=== PATIENT | male | born 1930 | race Caucasian/White ===

== ENCOUNTER 2016-12-15 10:34 | Inpatient (IN) | payer MEDICARE ==
[2016-12-15] MEDS ORDERED: Eucerin (Mineral Oil/Petrolatum,White) 30 gm Jar TOP PRN (13:11)
[2016-12-15] MEDS ORDERED: Acetaminophen 650 MG Suppository PR PRN (13:11)
[2016-12-15] MEDS ORDERED: Ondansetron HCl/PF 4 MG/2 ML Vial IVP PRN (13:11)
[2016-12-15] MEDS ORDERED: Artificial Tear Sol 15 ML BOT EA EYE PRN (13:11)
[2016-12-15] MEDS ORDERED: HumaLOG 300 UNITS/3 ML VIAL SC PRN ×2 (13:11)
[2016-12-15] MEDS ORDERED: Bisacodyl 10 MG SUPP PR PRN (13:11)
[2016-12-15] MEDS ORDERED: Chloraseptic Spray 180 ml Bottle PO PRN (13:11)
[2016-12-15] MEDS ORDERED: Dextrose 5% in Water 1,000 ML IV PRN (13:11)
[2016-12-15] MEDS ORDERED: Labetalol HCl 100 MG/20 ML VIAL SLOW IVP PRN (13:11)
[2016-12-15] MEDS ORDERED: Sodium Chloride 0.65% Nasal 44 ML BOT EA NARE PRN (13:11)
[2016-12-15] MEDS ORDERED: Dextrose 50% Abboject 50 ML SYRINGE SLOW IVP PRN (13:11)
[2016-12-15] MEDS ORDERED: Dicyclomine HCl 20 mg/2 ml Ampule IM PRN (13:14)
[2016-12-15 13:45] VITALS: BMI 21.9
[2016-12-15] MEDS: Morphine Sulfate 2 MG/ML SYRINGE SLOW IVP PRN ×3 (13:52→21:11)
[2016-12-15] MEDS: Dextrose 5 % And 0.9 % NaCl 1,000 ML IV SCH ×2 (13:56→23:34)
--- NOTE | 2016-12-15 13:59 | HP ---
PRIMARY CARE PHYSICIAN: Dr. Ruben Badillo. REASON FOR ADMISSION: Transfer from [facility] for small-bowel obstruction. HISTORY OF PRESENT ILLNESS: An 86-year-old male who has previous multiple surgeries done in his life. He reports that he required midline incision in his abdomen for renal cell carcinoma. Subsequently, he required another surgery for small-bowel obstruction and required a colon resection, and after that surgery, patient's surgical site was infected and required a prolonged wound VAC therapy, and since then, he has incisional hernia. He had bowel obstruction in the past. Patient was fine up until last night. All of suddenly, during the middle of night, he was having acute severe crampy abdominal pain, which was about 10/10 in intensity. There was no specific aggravating or relieving factor. The patient had bowel movement around 4:30 this morning, which was scant amount. He had a very good bowel movement yesterday. Patient was reporting me that he was constipated yesterday, but he was feeling better after a bowel movement yesterday. Patient waited at home to feel better by itself, but even after a bowel movement , his pain was getting worse, he was feeling abdominal distention, and he was feeling nausea. He also vomited one time containing liquid without any blood. Even after vomiting, he was not feeling much better and that is why he decided to go to emergency room locally around 5:00 a.m. The patient was diagnosed with a small-bowel obstruction. Patient had NG tube and a low-intermittent suction was started, and subsequently, he was transferred to our hospital for further treatment. From emergency room, Dr. Childs was notified and he recommended to admit under Medicine Service. At this point, patient is mainly irritated with his NG tube. He still has abdominal pain, but less in intensity. He denies any fever or chills. He denies any urinary tract infection symptoms. He denies any melena or hematochezia. Emergency room treatment at [facility], the patient was given Zofran 4 mg, morphine 4 mg, IV fluid, and subsequently, morphine and Zofran dose was repeated. PAST MEDICAL HISTORY: History of renal cell carcinoma, required a nephrectomy; history of small-bowel obstruction, required surgery and colectomy; history of benign enlargement of prostate; incisional hernia; diabetes, type 2; dyslipidemia. PAST SURGICAL HISTORY: Right kidney removal due to cancer and colon resection after small-bowel obstruction. PAST PSYCHIATRIC HISTORY: Reviewed and negative. SOCIAL HISTORY: Patient is . He is pretty much active. He lives with his in the [facility]. He drinks 1 beer daily. He denies any smoking. He denies any other illicit drug abuse. FAMILY HISTORY: No strong family history of premature coronary artery disease, stroke, or cancer. ALLERGIES: ASPIRIN AND PROMETHAZINE. CURRENT HOME MEDICATIONS: Lisinopril 20 mg p.o. daily, metformin 500 mg twice daily, metoprolol tartrate 25 mg p.o. daily, omeprazole 40 mg p.o. daily, triamterene/hydrochlorothiazide 37.5/25 one tablet p.o. daily, balsalazide 750 mg p.o. b.i.d., dicyclomine 20 mg 3 times daily, Lipitor 40 mg p.o. at bedtime. REVIEW OF SYSTEMS: The following complete review of systems was negative, unless otherwise mentioned in the HPI or below: CONSTITUTIONAL: Weight loss or gain, ability to conduct usual activities. SKIN: Rash, itching. EYES: Double vision, pain. ENT/MOUTH: Nose bleeding, neck stiffness, pain, tenderness. CARDIOVASCULAR: Palpitations, dyspnea on exertion, orthopnea. RESPIRATORY: Shortness of breath, wheezing, cough, hemoptysis, fever or night sweats. GASTROINTESTINAL: Poor appetite, abdominal pain, heartburn, nausea, vomiting, constipation, or diarrhea. GENITOURINARY: Urgency, frequency, dysuria, nocturia. MUSCULOSKELETAL: Pain, swelling. NEUROLOGIC/PSYCHIATRIC: Anxiety, depression. ALLERGY/IMMUNOLOGIC: Skin rash, bleeding tendency. Please see my HPI for pertinent positives and negatives. All other review of systems reviewed and negative except as mentioned in the HPI. PHYSICAL EXAMINATION: VITAL SIGNS: Currently, blood pressure 115/76, pulse 69, respiratory rate 19, temperature 97.5, saturation 96% on room air, weight 61.6 kilograms. GENERAL: Patient is currently alert, awake, in no obvious acute distress. HEENT: Head: Normocephalic and atraumatic. Eyes: Pupils round and reactive to light. Extraocular muscle intact. ENT: NG tube in place with low- intermittent suction. Oropharynx within normal limits. Moist mucous membranes. No oral lesions. No pharyngeal erythema, no exudate. NECK: Supple. Range of motion is normal. No meningeal signs of irritation. LUNGS: Clear to auscultation without any rhonchi or rales. CARDIAC: S1, S2 regular without any murmur. ABDOMEN: Patient does have a midline old surgical scar with a large ventral defect with incisional hernia. Abdomen appears slightly distended. Bowel sound unable to elicit at this point. No peritoneal signs, no guarding, no rigidity, no rebound. BACK: Examination unremarkable, no CVA tenderness. EXTREMITIES: Upper extremities, passive movement of all joints are normal. Lower extremities, no edema, good peripheral pulsation. SKIN: No skin rash. HEMATOLOGICAL SYSTEM: No lymphadenopathy. PSYCHIATRIC: Normal affect. NEUROLOGIC: Nonfocal examination. The patient moves all 4 limbs. Plantar bilateral flexor. PSYCHIATRIC: Normal affect. SIGNIFICANT LABS: campus monitor was showing normal sinus rhythm. Li catheter draining clear urine. NG tube with low-intermittent suction, draining a little amount of yellowish fluid. CT of the abdomen and pelvis based on my review, mid small-bowel obstruction, left lower lobe 2 masses present, worrisome for metastasis, small pleural nodule, right-sided nephrectomy. CBC: WBC 6.9, hemoglobin 15.3, platelet 218. BMP: Sodium 140, potassium 4.5, chloride 103, carbon dioxide 26, BUN 20, creatinine 1.26, glucose 141, calcium 9.5. LFT: AST 18, ALT 13, alkaline phosphatase 87, albumin 4.2, lipase 13. Urinalysis unremarkable. ASSESSMENT AND PLAN: 1. Acute small-bowel obstruction. This patient has various risk factors for small-bowel obstruction. He had a complicated previous surgical course in his abdomen with nephrectomy, and subsequently, patient had 1-time small-bowel obstruction, required colon resection and wound infection with incisional hernia. At this point, CT scan findings consistent with small-bowel obstruction. He already has NG tube with low-intermittent suction. We will consult General Surgery. We will keep him n.p.o. We will hydrate with IV fluid with dextrose NS at 100 mL per hour. Tomorrow morning, we will repeat x- ray abdomen and then we will decide a small bowel x-ray. Based on tomorrow's x- ray abdomen and small bowel x-ray, we will decide about starting clear liquid diet and advancing diet as tolerated. We are hoping that this problem will improve with conservative therapy. If current conservative therapy fails and if his small-bowel obstruction does not resolve, then he is very complicated patient for a surgical intervention as well. 2. Pulmonary metastasis suspected. This patient has left lower lobe lung mass , and given his previous history of renal cell carcinoma, metastasis is possible. He also has 2 pulmonary nodules. At this point, we will defer this investigation as an outpatient basis. He may need outpatient follow up with oncologist and PET scan. 3. Diabetes, type 2. This patient is taking metformin 500 mg p.o. b.i.d., which he will hold at this point. We will continue with insulin as per sliding scale protocol. We will continue to monitor his labs. 4. History of hypertension. We will use only parenteral blood pressure medication for now until the patient starts taking his p.o. intake. 5. Gastroesophageal reflux disease. We will continue with Pepcid 20 mg IV b.i.d. 6. Dyslipidemia. We will resume Lipitor therapy when the patient is able to take p.o. intake. 7. Deep venous thrombosis prophylaxis. Lovenox 30 mg subcutaneously daily. 8. Gastrointestinal prophylaxis. Pepcid 20 mg IV b.i.d. 9. Code status: The patient is FULL CODE. The patient's is surrogate decision maker. Disposition plan based on clinical course. We are expecting patient's stay in the hospital more than 2 midnights. Plan of care discussed with the patient and in detail. MTDD
--- NOTE | 2016-12-15 17:04 | CON ---
DATE OF CONSULTATION: 12/15/2016 REQUESTING PHYSICIAN: Regis Diaz M.D. HISTORY OF PRESENT ILLNESS: This is an 86-year-old man with previous multiple abdominal surgeries. The patient presented to [facility] in [place], complaining of insidious onset generalized abdo valeria pain which was crampy in nature. Pain started last night and intensified to 10/10, and as a r esult, he was taken to the emergency department by his . The patient reports some nausea with o ne bout of nonbilious emesis. Last bowel movement was yesterday. Last time he passed gas was also yesterday. The patient reports recent bouts of constipation and no alternative episodes of diarrhea . Denies any fevers or chills. Denies any hematochezia or melena. The patient denies any unexplai andreea weight loss. PAST MEDICAL HISTORY: Significant for renal cell carcinoma of which the patient is status post neph rectomy. Other pertinent past medical history includes benign prostatic hypertrophy, type 2 diabetes mellitus , hyperlipidemia, and chronic abdominal pain. PAST SURGICAL HISTORY: Significant for right radical nephrectomy, partial colon resection with anas tomosis, multiple exploratory laparotomies for small bowel obstruction. SOCIAL HISTORY: The patient is and lives at home with his . He admits to drinking one beer a day. Denies any cigarette smoking or illicit drug abuse. FAMILY HISTORY: Noncontributory for this patient's age. PREHOSPITAL MEDICATIONS: Includes Flomax 0.4 mg p.o. daily, tramadol 50 mg p.o. q.6 h. p.r.n., hydr ochlorothiazide 12.5 mg p.o. daily, hydrocodone 10 mg p.o. q.6 h. p.r.n. pain, docusate calcium 240 mg p.o. b.i.d., and sucralfate 1 gram p.o. b.i.d. ALLERGIES: ASPIRIN and PROMETHAZINE. REVIEW OF SYSTEMS: A 10 point review of system is essentially unremarkable except for as stated in past medical history and chief complaint. PHYSICAL EXAMINATION: GENERAL: This reveals an 86-year-old normally developed man who is otherwise coherent and interacti ve and appears stated age. The patient is alert and oriented x3, appears to be in no significant ac blaire distress at the time of my evaluation. VITAL SIGNS: Currently includes blood pressure 153/82, pulse 62, respirations 18, temperature 97.4 degrees Fahrenheit, and oxygen saturation 95% on room air. HEENT: Reveals normocephalic and atraumatic. He has an indwelling nasogastric tube placed in [facility] ell this morning, prior to transfer has been over 8 hours since the nasogastric tube was placed and has returned less than 200 mL of nonbilious gastric effluent. NECK: The patient has no jugular venous distention noted. CARDIOVASCULAR: Heart reveals regular rate and rhythm, no murmurs or gallops auscultated. LUNGS: Clear to auscultation bilaterally. Breathing is regular and unlabored. ABDOMEN: Soft and moderately distended. He has minimal tenderness to palpation with no gross rebou nd tenderness present. He has irregularly shaped incisional abdominal scar consistent with previous histories of multiple abdominal operations last of which was complicated by wound infection which w as allowed to heal by secondary intention. Liver and spleen are nonpalpable below costal margins. Bowel sounds in all four quadrants appear normoactive. EXTREMITIES: There is 2+ radial and pedal pulses bilaterally. No ankle edema is present. NEUROLOGIC: Reveals no focal deficits present. PERTINENT LABORATORY FINDINGS: From [place] includes a CBC with 6900 white blood cells, hemoglobin 15.3, hematocrit is 45.8, and platelet count 218,000. Metabolic profile: Sodium 140, potassium 4. 5, chloride is 103, bicarbonate 26, BUN 20, creatinine is 1.26, glucose 141. Total bilirubin 0.6, AST and ALT normal at 18 and 13 respectively. Alkaline phosphatase is also normal at 87. Serum lip ase normal at 13 units per liter. Urinalysis obtained was essentially unremarkable. I personally r eviewed the CT scan of the abdomen and pelvis which is pertinent for 2 abnormal soft tissue pulmonar y densities in the left lower lobe. Also noted are multiple distended loops of small bowel with no clear transition zone. The contrast appears to extend into the colon. There is actually gas in the rectum. IMPRESSION: 1. Acute abdominal pain, likely secondary to partial small bowel obstruction versus gastroenteritis . 2. Abnormal long densities likely secondary to metastatic renal cell carcinoma. RECOMMENDATIONS: 1. Conservative management. There is no acute surgical indication for this patient at this time. 2. The nasogastric tube will be discontinued and the patient will be started on clear liquid diet. I will continue serial physical examination and make further recommendations as necessary. 3. At the discretion of the primary service and the patient. The lung abnormal densities may recei ve further workup to exclude metastatic disease. Thank you again Dr. Diaz for allowing me the opportunity to participate in the care of this patie nt whose course I will follow along with you and make further recommendations as necessary.
[2016-12-15] MEDS: Famotidine/PF 20 mg/2ml Vial SLOW IVP SCH (20:29)
[2016-12-15] MEDS ORDERED: FLU VACC TS2017-18 (>65YR) 0.5 ML SYRINGE IM ONE (21:00)
[2016-12-16] MEDS: Morphine Sulfate 2 MG/ML SYRINGE SLOW IVP PRN (01:47)
[2016-12-16 05:07] LABS: #Lymphocytes 0.8 thou/uL (1.20-3.40); #Monocytes 0.6 thou/uL (0.11-0.59); #Neutrophils 2.9 thou/uL (1.40-6.50); %Basophils 0.1 % (0.0-1.0); %Eosinophils 1.1 % (0.0-10.0); %Lymphocytes 17.7 % (21.0-51.0); %Monocytes 13.8 % (0.0-10.0); Mean Platelet Volume 7.3 fL (7.4-10.4); Red Blood Cell (RBC) Count 4.44 mill/uL (4.70-6.10); White Blood Cell (WBC) Count 4.2 thou/uL (4.8-10.8)
[2016-12-16 05:32] LABS: ALT (SGPT) 8 U/L (8-55); AST (SGOT) 17 U/L (5-34); Alkaline Phosphatase 74 U/L (40-150); Anion Gap 10 mmol/L (10-20); BUN (Urea Nitrogen) 16 mg/dL (8.4-25.7); Bilirubin, Total 0.7 mg/dL (0.2-1.2); Calc. Creatinine Clearance 45 mL/min (70-130); Calcium 8.3 mg/dL (7.8-10.44); Carbon Dioxide 21 mmol/L (23-31); Chloride 108 mmol/L (98-107); Estimated GFR-MDRD 68; Globulin 2.8 g/dL (2.4-3.5)
[2016-12-16] MEDS ORDERED: HYDROcodone/Acetaminophen 5/325 mg Tablet PO PRN (07:33)
[2016-12-16] MEDS ORDERED: traMADol HCl 50 MG TAB PO PRN (07:33)
[2016-12-16] MEDS: Enoxaparin Sodium 30 MG/0.3 ML SYRINGE SC SCH (08:23)
[2016-12-16] MEDS: Famotidine/PF 20 mg/2ml Vial SLOW IVP SCH ×2 (08:24→20:30)
[2016-12-16] MEDS: Tamsulosin HCl 0.4 MG CAP PO SCH (08:24)
[2016-12-16] MEDS: Sucralfate 1 GM TAB PO SCH ×2 (08:24→20:30)
[2016-12-16] MEDS: Polyethylene Glycol 3350 17 GM Packet PO SCH (08:24)
[2016-12-16] MEDS: Hydrochlorothiazide 25 MG TAB PO SCH (08:25)
[2016-12-16] MEDS: Dextrose 5 % And 0.9 % NaCl 1,000 ML IV SCH (08:35)
[2016-12-16] MEDS ORDERED: Non-Formulary Item 1 EACH (Hydrochlorothiazide [Hydrochlorothiazide] 12.5 MG) PO SCH (09:00)
--- NOTE | 2016-12-16 09:43 | RAD ---
AP ABDOMINAL RADIOGRAPH: DATE: 12/16/16. HISTORY: Small bowel obstruction. COMPARISON: CT abdomen on 12/15/16. FINDINGS: There are dilated loops of small bowel seen within the abdomen which were also seen on recent CT sca n examination. There does appear to be contrast within the colon on this examination. Findings may be related to a partial small bowel obstruction. Phleboliths overlie the pelvis. Mild degenerativ e changes are seen in the spine. IMPRESSION: Dilated loops of small bowel, and contrast does appear to be within the colon on the current study. Findings may be related to partial small bowel obstruction. POS: [facility]
--- NOTE | 2016-12-16 10:27 | PDOC.PN ---
- Subjective Encounter Start Date: 12/16/16 Encounter Start Time: 08:40 -: old records requested/rev pt had small BM today, no vomiting, Patient seen and examined. No new complaints. No overnight events - Objective Resuscitation Status: Resuscitation Status FULL:Full Resuscitation MAR Reviewed: Yes Vital Signs & Weight: Vital Signs (12 hours) Temp Pulse Resp BP BP Pulse Ox 12/16/16 08:00 97.6 F 68 16 12/16/16 07:25 97.6 F 68 16 132/75 95 12/16/16 04:00 98.6 F 69 20 120/67 96 12/16/16 00:00 98.4 F 64 18 149/76 H 95 Weight Weight 136 lb I&O: 12/15/16 12/16/16 12/17/16 06:59 06:59 06:59 Intake Total 1840 Output Total 200 Balance 1640 Result Diagrams: 12/16/16 04:28 12/16/16 04:28 Additional Labs: Accuchecks 12/16/16 05:30 POC Glucose 137 H Radiology Reviewed by me: Yes (xray abdomen) Phys Exam - Physical Examination Constitutional: NAD HEENT: PERRLA, moist MMs, sclera anicteric Neck: no JVD, supple Respiratory: no wheezing, no rales, no rhonchi Cardiovascular: RRR, no significant murmur, no rub Gastrointestinal: soft, non-tender, no distention, positive bowel sounds Musculoskeletal: no edema, pulses present Neurological: non-focal, normal sensation, moves all 4 limbs Psychiatric: normal affect, A&O x 3 Skin: no rash, normal turgor Dx/Plan (1) Partial small bowel obstruction Status: Resolved (2) Pulmonary mass Code(s): R91.8 - OTHER NONSPECIFIC ABNORMAL FINDING OF LUNG FIELD Status: Acute (3) BPH (benign prostatic hyperplasia) Code(s): N40.0 - BENIGN PROSTATIC HYPERPLASIA WITHOUT LOWER URINRY TRACT SYMP Status: Chronic (4) Dyslipidemia Code(s): E78.5 - HYPERLIPIDEMIA, UNSPECIFIED Status: Chronic (5) H/O renal cell carcinoma Code(s): Z85.528 - PERSONAL HISTORY OF OTHER MALIGNANT NEOPLASM OF KIDNEY Status: Chronic (6) Hypertension Code(s): I10 - ESSENTIAL (PRIMARY) HYPERTENSION Status: Chronic (7) Macrocytosis without anemia Code(s): D75.89 - OTHER SPECIFIED DISEASES OF BLOOD AND BLOOD-FORMING ORGANS Status: Chronic - Plan cont current plan of care, plan discussed w/ family * DC hyperglycemia order as pt denies diabetes history * advance to regular diet * will monitor today for his food tolerance * pt wants to follow up with oncology for his lung lesion for outpt work up * consult dietary for diet education * medication reviewed as below * symptomatic treatment * discussed with . Review of Systems - Review of Systems ENT: negative: Ear Pain, Ear Discharge, Nose Pain, Nose Discharge, Nose Congestion, Mouth Pain, Mouth Swelling, Throat Pain, Throat Swelling, Other Respiratory: negative: Cough, Dry, Shortness of Breath, Hemoptysis, SOB with Excertion, Pleuritic Pain, Sputum, Wheezing Cardiovascular: negative: Chest Pain, Palpitations, Orthopnea, Paroxysmal Noc. Dyspnea, Edema, Light Headedness, Other Gastrointestinal: negative: Nausea, Vomiting, Abdominal Pain, Diarrhea, Constipation, Melena, Hematochezia, Other Genitourinary: negative: Dysuria, Frequency, Incontinence, Hematuria, Retention , Other Musculoskeletal: negative: Neck Pain, Shoulder Pain, Arm Pain, Back Pain, Hand Pain, Leg Pain, Foot Pain, Other - Medications/Allergies Allergies/Adverse Reactions: Allergies Allergy/AdvReac Type Severity Reaction Status Date / Time aspirin Allergy Verified 03/03/14 12:19 promethazine HCl Allergy Verified 03/03/14 12:19 [From Phenergan] Medications: Current Medications Acetaminophen (Tylenol) 650 mg DE Q4H PRN PRN Reason: Headache/Fever or Mild Pain Hydrocodone Bitart/Acetaminophen ([place]unter 5/325) 2 tab PO Q6H PRN PRN Reason: Pain Albuterol/Ipratropium (Duoneb) 3 ml NEB [id number] PRN PRN Reason: SOB &/or Wheezing Artificial Tears (Tears Renewed 15ml Bottle) 0 drop EA EYE PRN PRN PRN Reason: Dry Eyes Bisacodyl (Dulcolax) 10 mg DE Q24H PRN PRN Reason: Constipation Dicyclomine HCl (Bentyl) 20 mg IM QID PRN PRN Reason: GI Cramping Last Admin: 12/15/16 23:50 Dose: 20 mg Enoxaparin Sodium (Lovenox) 30 mg SC 0900 LEONARD Last Admin: 12/16/16 08:23 Dose: Not Given Famotidine (Pepcid) 20 mg SLOW IVP Q12HR [facility] Last Admin: 12/16/16 08:24 Dose: 20 mg Hydralazine HCl (Apresoline) 10 mg SLOW IVP Q4H PRN PRN Reason: Systolic BP > 180 Hydrochlorothiazide (Hydrochlorothiazide) 12.5 mg PO DAILY [facility] Last Admin: 12/16/16 08:25 Dose: 12.5 mg Labetalol HCl (Normodyne) 20 mg SLOW IVP Q4H PRN PRN Reason: Systolic BP > 180 Mineral Oil/White Petrolatum (Eucerin Cream) 0 gm TOP BIDPRN PRN PRN Reason: Dry Skin Morphine Sulfate (Morphine Sulfate) 2 mg SLOW IVP Q4H PRN PRN Reason: Pain Last Admin: 12/16/16 01:47 Dose: 2 mg Ondansetron HCl (Zofran) 4 mg IVP Q6H PRN PRN Reason: Nausea/Vomiting Last Admin: 12/15/16 21:09 Dose: 4 mg Phenol (Chloraseptic [place] 180 Ml Bot) 0 ml PO PRN PRN PRN Reason: Sore Throat Polyethylene Glycol (Miralax) 17 gm PO DAILY [facility] Last Admin: 12/16/16 08:24 Dose: 17 gm Sodium Chloride ([place] Nasal [place] 0.65%) 0 ml EA NARE QIDPRN PRN PRN Reason: Nasal Congestion Sodium Chloride (Flush - Normal Saline) 10 ml IVF Q12HR [facility] Last Admin: 12/16/16 08:23 Dose: Not Given Sodium Chloride (Flush - Normal Saline) 10 ml IVF PRN PRN PRN Reason: Saline Flush Sucralfate (Carafate) 1 gm PO BID [facility] Last Admin: 12/16/16 08:24 Dose: 1 gm Tamsulosin HCl (Flomax) 0.4 mg PO DAILY [facility] Last Admin: 12/16/16 08:24 Dose: 0.4 mg Tramadol HCl (Ultram) 50 mg PO Q6H PRN PRN Reason: Pain
--- NOTE | 2016-12-16 11:38 | PRG ---
DATE OF SERVICE: 12/16/2016 SUBJECTIVE: Mr. Beard is awake and alert today. He reports minimal abdominal pain. He tolerates clear liquid diet. He did report a bowel movement this morning and passing flatus. He has remained hemodynamically stable since this admission and afebrile over the last 24 hours. OBJECTIVE: VITAL SIGNS: Includes blood pressure 132/75, pulse 68, respirations 16, maximum temperature in the last 24 hours is 98.6 degrees Fahrenheit. Oxygen saturation is 95% on room air. HEENT: Reveals normocephalic and atraumatic. Pupils equal, round, reactive to light and accommodat ion. He has no jugular venous distention noted. HEART: Reveals regular rate and rhythm, no murmurs or gallops auscultated. CHEST: Lungs clear to auscultation bilaterally. Breathing is regular and unlabored. ABDOMEN: Soft, nontender and nondistended. Bowel sounds in all 4 quadrants appear normoactive. NEUROLOGIC: Reveals no focal deficits present. LABORATORY DATA: Today includes a CBC with 4200 white blood cells, hemoglobin 14.6, hematocrit is 4 5.0, platelet count is 225,000. Metabolic profile: Sodium 135, potassium is 4.4, chloride is 108, bicarbonate 21, BUN 16, creatinine is 1.03, glucose 140. Lactic acid is normal at 1.2, AST and ALT normal at 17 and 8 respectively. IMPRESSION: Resolved acute small-bowel obstruction. PLAN: Will advance diet and activity. There is no acute surgical indication for this patient at th is time.
[2016-12-17] MEDS: Polyethylene Glycol 3350 17 GM Packet PO SCH (07:12)
[2016-12-17] MEDS: Tamsulosin HCl 0.4 MG CAP PO SCH (07:13)
[2016-12-17] MEDS: Famotidine/PF 20 mg/2ml Vial SLOW IVP SCH (07:13)
[2016-12-17] MEDS: Sucralfate 1 GM TAB PO SCH (07:13)
[2016-12-17] MEDS: Hydrochlorothiazide 25 MG TAB PO SCH (07:13)
[2016-12-17] MEDS: Enoxaparin Sodium 30 MG/0.3 ML SYRINGE SC SCH (07:16)
[2016-12-17 08:05] VITALS: BP 138/69; TEMP 98.3
--- NOTE | 2016-12-17 11:04 | PDOC.PN ---
- Subjective Encounter Start Date: 12/17/16 Encounter Start Time: 06:00 Patient seen and examined. No new complaints. No overnight events - Objective Resuscitation Status: Resuscitation Status FULL:Full Resuscitation MAR Reviewed: Yes Vital Signs & Weight: Vital Signs (12 hours) Temp Pulse Resp BP Pulse Ox 12/17/16 08:04 98.3 F 69 18 138/69 95 12/17/16 08:00 98.3 F 69 18 Weight Weight 136 lb I&O: 12/16/16 12/17/16 12/18/16 06:59 06:59 06:59 Intake Total 1840 Output Total 200 100 Balance 1640 -100 Result Diagrams: 12/16/16 04:28 12/16/16 04:28 Additional Labs: Accuchecks 12/15/16 20:06 POC Glucose 135 H Phys Exam - Physical Examination Constitutional: NAD HEENT: PERRLA, moist MMs, sclera anicteric Neck: no JVD, supple Respiratory: no wheezing, no rales, no rhonchi Cardiovascular: RRR, no significant murmur, no rub Gastrointestinal: soft, non-tender, no distention, positive bowel sounds Musculoskeletal: no edema, pulses present Neurological: non-focal, normal sensation, moves all 4 limbs Psychiatric: normal affect, A&O x 3 Skin: no rash, normal turgor Dx/Plan (1) Partial small bowel obstruction Status: Resolved (2) Pulmonary mass Code(s): R91.8 - OTHER NONSPECIFIC ABNORMAL FINDING OF LUNG FIELD Status: Acute (3) BPH (benign prostatic hyperplasia) Code(s): N40.0 - BENIGN PROSTATIC HYPERPLASIA WITHOUT LOWER URINRY TRACT SYMP Status: Chronic (4) Dyslipidemia Code(s): E78.5 - HYPERLIPIDEMIA, UNSPECIFIED Status: Chronic (5) H/O renal cell carcinoma Code(s): Z85.528 - PERSONAL HISTORY OF OTHER MALIGNANT NEOPLASM OF KIDNEY Status: Chronic (6) Hypertension Code(s): I10 - ESSENTIAL (PRIMARY) HYPERTENSION Status: Chronic (7) Macrocytosis without anemia Code(s): D75.89 - OTHER SPECIFIED DISEASES OF BLOOD AND BLOOD-FORMING ORGANS Status: Chronic - Plan cont current plan of care, plan discussed w/ family * medication reviewed as below * symptomatic treatment * see discharge macie.
--- NOTE | 2016-12-17 11:20 | DIS ---
DATE OF ADMISSION: 12/15/2016 DATE OF DISCHARGE: 12/17/2016 PRIMARY CARE PHYSICIAN: Luan Badillo D.O. DISCHARGE DISPOSITION: Home. PRIMARY DISCHARGE DIAGNOSES: 1. Partial small-bowel obstruction, improved. 2. Pulmonary mass suspected for metastasis. SECONDARY DISCHARGE DIAGNOSES: Macrocytosis without anemia, alcohol abuse, hypertension, history of renal cell carcinoma, dyslipidemia, and benign enlargement of prostate. PRIMARY PROCEDURE/OPERATION: NG tube with low intermittent suction. RADIOLOGICAL INVESTIGATION: Abdomen and pelvis CT scan was done at [facility] which sh owed small-bowel obstruction and pulmonary mass. Abdomen x-ray showed nonspecific bowel gas pattern. SIGNIFICANT LABORATORY DATA: Hemoglobin 14.6, MCV 101, creatinine 1.03. Electrolytes normal. LFT normal. Lactic acid 1.2. DISCHARGE MEDICATIONS: The patient will continue all his previous medications; Colace 240 mg p.o. b .i.d., [place] 5 one 1 or 2 tablets q.6 hourly p.r.n., hydrochlorothiazide 12.5 mg p.o. daily, MiraLax 17 grams p.o. daily, Carafate 1 gram p.o. b.i.d., Flomax 0.4 mg p.o. daily, tramadol 50 mg q.6 hour ly p.r.n. CONTRAINDICATIONS: None. CODE STATUS: FULL CODE. 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 Childs, General Surgery was consulted. ALLERGIES: ASPIRIN, PROMETHAZINE. DISCHARGE PLAN: Post hospital, the patient will follow up with primary care physician. The patient is advised to follow up with Dr. Childs as instructed. Primary care physician requested to schedule outpatient Oncology followup for pulmonary mass. HOSPITAL COURSE: An 86-year-old male who initially went to [facility] where he had abd omen and pelvis CT scan that showed partial small bowel obstruction. Patient went to Emergency Room for acute onset of abdominal pain, but that pain did not improve even after vomiting and he was fee ling abdominal bloating, he was transferred to our emergency room and subsequently he was admitted t o medical floor. He was admitted under Medicine Service, we consulted General Surgery. Patient was treated conservatively with NG tube with low intermittent suction. Subsequently, NG tube was disco ntinued and patient was started on clear liquid diet and he did very well with clear liquid diet and next day we advanced his diet and he had no problems. He was having bowel movement. At this point, Podiatry consult was made and patient was given detailed education about low residue diet. The patient is given counseling to avoid alcohol abuse. Patient is also given instruction to follow up with Oncology/Pulmonary for pulmonary mass evaluation. This test result was discussed with the patient and he wanted to follow up as an outpatient basis. He may need a PET scan and subsequent bi opsy if he is interested. Overall, patient is medically stable for discharge. The patient is seen and examined at bedside tokatherine byrd. Please see my progress note from today for further details.
== END 2016-12-17 10:12 | disposition home or self-care (01) | DRG 389 ==
LOC: ERS 10:34 → T4-A 12:06
PROVIDERS: ADMIT Internal Medicine; ATTEND Internal Medicine
DX: K56.609 Unspecified intestinal obstruction, unspecified as to partial versus complete obstruction (principal); C78.02 Secondary malignant neoplasm of left lung; E11.9 Type 2 diabetes mellitus without complications; D75.89 Other specified diseases of blood and blood-forming organs; E78.5 Hyperlipidemia, unspecified; I10 Essential (primary) hypertension; K21.9 Gastro-esophageal reflux disease without esophagitis; N40.0 Benign prostatic hyperplasia without lower urinary tract symptoms; F10.10 Alcohol abuse, uncomplicated; Z90.49 Acquired absence of other specified parts of digestive tract; Z90.5 Acquired absence of kidney; Z88.8 Allergy status to other drugs, medicaments and biological substances
CPT/HCPCS: 36415; 36416; 74000; 80053; 83605; 85025; 99285; A4216; J1650; J2270; J2405; S0028

== ENCOUNTER 2019-04-08 01:48 | Inpatient (IN) | payer MEDICARE ==
[2019-04-08] MEDS ORDERED: Ondansetron PF 4 MG/2 ML Vial IVP PRN (02:37)
[2019-04-08 02:56] LABS: #Eosinphils 0.1 thou/uL (0.0-0.7); #Monocytes 0.4 thou/uL (0.11-0.59); #Neutrophils 4.2 thou/uL (1.40-6.50); %Basophils 0.8 % (0.0-1.0); %Eosinophils 1.4 % (0.0-10.0); %Monocytes 7.3 % (0.0-10.0); %Neutrophils 72.5 % (42.0-75.0); Hemoglobin 15.6 g/dL (14.0-18.0); Mean Corpuscular HGB CONC 32.2 g/dL (32.0-36.0); Mean Corpuscular Hemoglobin 29.7 pg (27.0-31.0); Mean Corpuscular Volume 92.2 fL (78.0-98.0); Mean Platelet Volume 6.3 fL (7.4-10.4); Platelet Count 289 thou/uL (130-400); RBC Distribution Width 13.2 % (11.5-14.5); Red Blood Cell (RBC) Count 5.27 mill/uL (4.70-6.10); White Blood Cell (WBC) Count 5.7 thou/uL (4.8-10.8)
--- NOTE | 2019-04-08 03:00 | PDOC.EVN ---
Event Note - Event Note Event Note: [id number] HP
[2019-04-08 03:20] LABS: Anion Gap 11 mmol/L (10-20); BUN (Urea Nitrogen) 19 mg/dL (8.4-25.7); Calc. Creatinine Clearance 0 mL/min (70-130); Calcium 8.2 mg/dL (7.8-10.44); Carbon Dioxide 24 mmol/L (23-31); Chloride 107 mmol/L (98-107); Estimated GFR-MDRD 68; Glucose 107 mg/dL (83-110); Potassium 4.8 mmol/L (3.5-5.1); Sodium 137 mmol/L (136-145)
--- NOTE | 2019-04-08 03:23 | HP ---
CHIEF COMPLAINT: Abdominal pain. HISTORY OF PRESENT ILLNESS: Mr. Kisha garces is an 88-year-old male with past medical history of renal cancer, bowel obstruction, lung mass, among others, presents to [facility] with abdominal pain. The patient denies nausea and vomiting. Workup in the emergency room including imaging studies, the patient was found to have small bowel obstruction. The patient is transferred here for further management. ED physician consulted with surgeon, was advised to admit the patient under Medical Service and Surgery will see the patient in the morning. Attempt to place a nasogastric tube failed, several attempts. The patient is not vomiting. The patient is being admitted to hospital for further management. PAST MEDICAL HISTORY: 1. Hypertension. 2. Renal cell carcinoma. 3. Hyperlipidemia. 4. Pulmonary mass. 5. Partial small bowel obstruction. PAST SURGICAL HISTORY: Nephrectomy. SOCIAL HISTORY: Denies alcohol use. FAMILY HISTORY: Reviewed and noncontributory. ALLERGIES: ALLERGIC TO ASPIRIN AND PROMETHAZINE. CURRENT MEDICATIONS: Please see home medication reconciliation form for updated medications. REVIEW OF SYSTEMS: Review of 14 systems negative except what is mentioned in history of present illness. PHYSICAL EXAMINATION: GENERAL: The patient is awake, alert, in moderate distress. VITAL SIGNS: Blood pressure 139/76, pulse is 79, respiratory rate is 24, pulse oximetry is 98% on room air. HEENT: Head and neck, normocephalic, atraumatic. NECK: Supple. No JVD. CHEST: Fair bilateral air entry. HEART: S1, S2 regular. ABDOMEN: Soft, moderately distended with scarring around the periumbilical area. Bowel sounds hypoactive. NEUROLOGIC: Awake, alert, and oriented x3. PSYCHIATRIC: Normal mood. EXTREMITIES: No clubbing or cyanosis. GENITOURINARY: No suprapubic tenderness. No flank tenderness. LABORATORY DATA: Reviewed. Imaging studies as mentioned above. ASSESSMENT AND PLAN: 1. Small-bowel obstruction. 2. History of nephrectomy. 3. Hypertension. 4. Hyperlipidemia. PLAN: 1. Admit. 2. Keep n.p.o. 3. IV fluids. 4. Surgeon consulted for evaluation and further management. 5. Reconcile home medications. 6. DVT prophylaxis as appropriate. 7. Expected length of stay, 2 midnights or more. Job ID: [id number]
[2019-04-08 05:18] VITALS: BMI 21.8
[2019-04-08] MEDS ORDERED: Morphine 2 MG/ML SYRINGE SLOW IVP PRN (05:54)
[2019-04-08] MEDS: Dextrose 5 %-0.45 % NaCl 1,000 ML IV SCH ×3 (06:13→22:39)
[2019-04-08] MEDS: Heparin 5,000 UNITS/ML VIAL SC SCH ×2 (09:58→20:59)
[2019-04-08] MEDS: Famotidine/PF 20 mg/2ml Vial SLOW IVP SCH ×2 (09:58→20:59)
[2019-04-08] MEDS: Acetaminophen 500 MG TAB PO SCH ×3 (10:14→22:36)
--- NOTE | 2019-04-08 16:09 | PDOC.HOSPP ---
- Subjective Encounter Date: 04/08/19 Subjective: Doing a little better than he was when he arrived. Has had two BM's. He and his indicate that they are aware of the lung lesions. They say they were there six years ago when he had the nephrectomy for the renal cancer. He was advised to follow up for a biopsy, but he didn't want to because he had been in the hospital 30+ days with the abd incision wound infection. - Objective Vital Signs & Weight: Vital Signs (12 hours) Temp Pulse Resp BP BP Pulse Ox 04/08/19 10:39 97.4 F L 73 16 156/77 H 94 L 04/08/19 07:10 97.3 F L 76 16 168/82 H 97 04/08/19 04:30 94 L 04/08/19 04:15 97.4 F L 84 18 168/83 H 94 L 04/08/19 04:10 97.4 F L 84 18 168/83 H 94 L Weight Weight 135 lb 2 oz I&O: 04/07/19 04/08/19 04/09/19 06:59 06:59 06:59 Intake Total 200 Balance 200 Result Diagrams: 04/08/19 02:47 04/08/19 02:47 Hospitalist ROS - Medication Medications: Active Medications Generic Name Dose Route Start Last Admin Trade Name Dennyq PRN Reason Stop Dose Admin Acetaminophen 1,000 mg 04/08/19 10:15 04/08/19 10:14 Tylenol PO 1,000 mg Q6H LEONARD Administration Famotidine 20 mg 04/08/19 09:00 04/08/19 09:58 Pepcid SLOW IVP 20 mg Q12HR LEONARD Administration Heparin Sodium (Porcine) 5,000 units 04/08/19 09:00 04/08/19 09:58 Heparin SC 5,000 units BID LEONARD Administration Dextrose/Sodium Chloride 1,000 mls @ 100 mls/hr 04/08/19 02:45 04/08/19 12:36 D5 1/2 Ns IV Not Given .Q10H LEONARD Morphine Sulfate 2 mg 04/08/19 05:54 04/08/19 05:59 Morphine SLOW IVP 2 mg Q4H PRN Administration Severe Pain (7-10) - Exam General Appearance: NAD, awake alert Heart: RRR, no murmur, no gallops, no rubs, normal peripheral pulses Respiratory: CTAB, no wheezes, no rales, no ronchi, normal chest expansion, no tachypnea, normal percussion Gastrointestinal: soft, non-tender, non-distended, normal bowel sounds, no palpable masses, no hepatomegaly, no splenomegaly, no bruit Gastrointestinal - other findings: Mid-abd scar with area that closed with secondary intension/granulation. Musculoskeletal: normal tone Psychiatric: normal affect, normal behavior, A&O x 3 Hosp A/P (1) Pulmonary mass Code(s): R91.8 - OTHER NONSPECIFIC ABNORMAL FINDING OF LUNG FIELD Status: Acute (2) BPH (benign prostatic hyperplasia) Code(s): N40.0 - BENIGN PROSTATIC HYPERPLASIA WITHOUT LOWER URINRY TRACT SYMP Status: Chronic (3) Dyslipidemia Code(s): E78.5 - HYPERLIPIDEMIA, UNSPECIFIED Status: Chronic (4) H/O renal cell carcinoma Code(s): Z85.528 - PERSONAL HISTORY OF OTHER MALIGNANT NEOPLASM OF KIDNEY Status: Chronic (5) Hypertension Code(s): I10 - ESSENTIAL (PRIMARY) HYPERTENSION Status: Chronic (6) Partial small bowel obstruction Status: Resolved - Plan Doing well. He had the miralax and had two BM's. Surg advancing to regular diet. Encouraged ambulation. Discussed the lung masses. Given the slow nature of the growth and his age, he is not inclined to pursue any work up. Does not want to even consider any type of surgery. He understands the concern for cancer.
[2019-04-08] MEDS ORDERED: Mag-Al 1200 mg/1200 mg/30 ML UDCUP PO SCH (19:45)
[2019-04-08] MEDS: Senokot S 8.6-50 MG TAB PO SCH (20:59)
--- NOTE | 2019-04-08 21:14 | CON ---
DATE OF CONSULTATION: HISTORY OF PRESENT ILLNESS: The patient is currently on the surgical floor. He is an 88-year-old man, who has a history of extensive abdominal surgeries after renal cell cancer, multiple bowel obstructions, metastatic lung cancer and other medical problems. He presented to the emergency department in [place] complaining of abdominal pain and upon evaluation there, the patient's CT there without p.o. contrast was concerning for small bowel obstruction, so he was transferred to our facility for further evaluation primarily by surgical team. The patient reports no fevers. He is passing gas and he had diarrhea the night prior to presenting to the emergency department. The patient denies nausea or vomiting. He is unsure of any ill contacts. PAST MEDICAL HISTORY: Renal cell carcinoma, BPH, type 2 diabetes, hyperlipidemia, chronic abdominal pain, lung masses. Midline abdominal wound dehiscence requiring extensive stay in the hospital for resolution. PAST SURGICAL HISTORY: Right radical nephrectomy, partial colon resection with anastomosis, multiple exploratory laparotomies for small bowel obstruction. SOCIAL HISTORY: The patient is , lives at home with his spouse. He drinks 1 to 2 beers per day. Denies drug or tobacco use. REVIEW OF SYSTEMS: A 10-point review of systems is negative except as otherwise stated. ALLERGIES: ASPIRIN AND PROMETHAZINE. CURRENT MEDICATIONS: 1. Flomax. 2. Tramadol. 3. Hydrochlorothiazide. 4. Hydrocodone. 5. Docusate. 6. Sucralfate. PHYSICAL EXAMINATION: VITAL SIGNS: Temperature is 97.4, heart rate 73, blood pressure 156/77, respirations 16, oxygen saturation 94% on room air. GENERAL: The patient is resting comfortably in bed. He is awake, alert, conversant, and appropriate. HEENT: Unremarkable. LUNGS: Clear to auscultation bilaterally. HEART: Regular rate and rhythm. ABDOMEN: Shows an extensive midline incision that is well healed. The patient has minimal distention. The patient relates that this appears to be his normal abdomen. He has positive bowel sounds and he has no evidence of peritonitis. EXTREMITIES: Neurovascularly intact x4. LABORATORY FINDINGS: White blood cell count 5.7, hemoglobin 15.6, hematocrit 48.6, platelets 289. Sodium 137, potassium 4.8, chloride 107, CO2 of 24, BUN 19, creatinine 1.03, glucose 107. RADIOGRAPHIC FINDINGS: CT of the abdomen and pelvis with IV contrast. Findings of; 1. Postop right nephrectomy. 2. Post right hemicolectomy with anastomosis what appears to be mid transverse colon level. 3. Dilated small loops. This pattern is unusual and the proximal small bowel is nondilated. There may be a transition area in the right lower quadrant and the mid abdomen near the anastomotic suture line causing the more distal dilation of the small bowel loops. Uncertain how much of this may be chronic baseline changes in this patient. There is interval enlargement of two necrotic appearing masses within the left lower lobe, very concerning for metastatic disease. 4. Left inguinal hernia containing colon, but not a source of the patient's obstruction. ASSESSMENT: 1. Acute abdominal pain, possibly due to partial small bowel obstruction versus gastroenteritis. 2. History of hypertension, renal cell carcinoma, hyperlipidemia, pulmonary mass. PLAN: Plan will be to start the patient on clear liquid diet, as of this dictation I have been notified that the patient was ambulating, passing gas and has had 2 bowel movements. In light of that, we will advance his diet as tolerated. We will re-evaluate the patient again tomorrow and he will likely be able to be discharged after that as I am being told that the patient does not desire any further workup for his potential cancer masses in his lungs. This patient was evaluated with Dr. Childs this morning during rounds. Job ID: [id number]
[2019-04-08] MEDS ORDERED: Melatonin 3 MG TAB PO PRN (22:20)
[2019-04-08] MEDS ORDERED: diphenhydrAMINE 25 MG CAP PO SCH (22:30)
[2019-04-08] MEDS ORDERED: Haloperidol Lactate 5 MG/ML VIAL SLOW IVP SCH (23:45)
[2019-04-09] MEDS: Acetaminophen 500 MG TAB PO SCH ×2 (04:24→09:45)
[2019-04-09] MEDS: Senokot S 8.6-50 MG TAB PO SCH (08:56)
[2019-04-09] MEDS: Dextrose 5 %-0.45 % NaCl 1,000 ML IV SCH (08:56)
[2019-04-09] MEDS ORDERED: Polyethylene Glycol 3350 17 GM Packet PO SCH (09:00)
[2019-04-09] MEDS: Heparin 5,000 UNITS/ML VIAL SC SCH (09:45)
[2019-04-09] MEDS: Famotidine/PF 20 mg/2ml Vial SLOW IVP SCH (09:45)
[2019-04-09 11:21] VITALS: BP 119/63; TEMP 98
--- NOTE | 2019-04-09 14:27 | PRG ---
DATE OF SERVICE: 04/09/2019 SUBJECTIVE: Mr. Beard is an 88-year-old male, currently remained in surgical floor. The patient sustained a small-bowel obstruction, already resolved. The patient's pain has subsided. The patient did have 4 bowels yesterday and reports no nausea or vomiting. Currently, the patient is on a regular diet. Vital signs have been stable. On general surgical standpoint, the patient is safe to discharge home and defer to discharge plan for primary team. General Surgery available for the patient's update status and assist as needed. General Surgery will sign out for now. Thank you for inviting us for care of the patient. Job ID: [id number]
--- NOTE | 2019-04-10 12:28 | DIS ---
DATE OF ADMISSION: 04/08/2019 DATE OF DISCHARGE: 04/09/2019 DISCHARGE DIAGNOSES: 1. Partial small-bowel obstruction. 2. Pulmonary masses concerning for neoplastic disease. 3. Benign prostatic hypertrophy. 4. Dyslipidemia. 5. Hypertension. 6. History of renal cell carcinoma. HISTORY OF PRESENT ILLNESS: This patient is an 88-year-old male with a remote history of a renal cell carcinoma requiring a nephrectomy and that resulted in significant wound healing complications, requiring wound VAC and healing by secondary intention. The patient was in the hospital about 39 days related to that particular episode. The patient has had previous episodes where he was admitted here with what appeared to be a partial small-bowel obstruction and again on this occasion, the patient presented to the hospital via the emergency department reporting abdominal pain. He had a CT scan of the abdomen and pelvis, which revealed post nephrectomy changes post right hemicolectomy, dilated small bowel loops. No unusual pattern, the proximal small bowel was not dilated. There was also note of interval enlargement of 2 necrotic-appearing masses within the left lower lobe concerning for metastatic disease, which had been present on previous imaging and there was a left inguinal hernia containing colon, but no evidence of obstruction there. HOSPITAL COURSE: The patient was admitted to the hospital for abdominal pain related to what appeared to be a small-bowel obstruction. The patient was seen by Surgery. The patient was given MiraLAX and subsequently was able to have several bowel movements. He was able to eat, get up and ambulate in the hospital without significant difficulty and was advanced to regular diet. Once he felt well with that, the patient was felt to be stable for discharge. I had a long discussion with the patient and his regarding his pulmonary masses. The patient felt fairly traumatized by his initial surgery for the nephrectomy, considering that and his advanced age, he was not interested in pursuing any type of invasive workup to even biopsy these lesions to confirm the diagnosis. Therefore, no further interventions were entertained. PHYSICAL EXAMINATION: VITAL SIGNS: On the day of discharge, temperature is 98.0, pulse 61, respirations 16, O2 sats 94%, BP 118/63. GENERAL: He was awake and alert. HEART: Regular rate and rhythm. LUNGS: Clear. ABDOMEN: Soft, nontender, and nondistended. Positive bowel sounds. EXTREMITIES: No edema. DISPOSITION: The patient is discharged to home in good condition. MEDICATIONS: 1. He will be on tamsulosin 0.4 mg p.o. daily. 2. MiraLAX 17 g p.o. daily as needed. ACTIVITY: As tolerated. DIET: He has no dietary restrictions. FOLLOWUP: He is to follow up with Dr. Luan Badillo and he can return to the hospital in the meantime should he have the need to do so. TIME SPENT: Total time in discharge activities was 33 minutes. Job ID: [id number]
== END 2019-04-09 13:29 | disposition home or self-care (01) | DRG 390 ==
LOC: ERS 01:48 → SURG B 04:12
PROVIDERS: ADMIT Internal Medicine; ATTEND Internal Medicine
DX: K56.600 Partial intestinal obstruction, unspecified as to cause (principal); I10 Essential (primary) hypertension; E78.5 Hyperlipidemia, unspecified; Z90.5 Acquired absence of kidney; N40.0 Benign prostatic hyperplasia without lower urinary tract symptoms; Z85.528 Personal history of other malignant neoplasm of kidney; E11.9 Type 2 diabetes mellitus without complications; G89.29 Other chronic pain; Z79.899 Other long term (current) drug therapy
CPT/HCPCS: 36415; 80048; 85025; 99285; J1630; J1644; J2270; J2405; Q0163; S0028

== ENCOUNTER 2019-09-26 10:15 | Inpatient (IN) | payer MEDICARE ==
--- NOTE | 2019-09-26 12:21 | PDOC.HHP ---
Hospitalist HPI - History of Present Illness Abd pain History of Present Illness: Patient is 89-year-old male with small bowel obstruction earlier this year presented to the emergency room with abdominal discomfort that started around 1 AM. The abdominal pain was moderate in intensity mainly localized in umbilical and epigastric region. He denies any aggravating or relieving factor. He felt nauseous without any vomiting. He had 2 episodes of liquid bowel movement prior to ER arrival. Mo melena, hematochezia or recent weightloss reported. He denies any fever chills or sick contacts. Patient is a poor historian. Majority of the history was obtained from the spouse at the bedside. In the emergency room nasogastric tube was placed and was started on suction he received IV fluids. CT scan of the abdomen was consistent with small bowel obstruction. ED Course: VITAL SIGNS WedSep 26, 2019 10:34 SARAH Richey Cory BP: 124/75, MAP: 91, Pulse: 76, Resp: 18, Temp: 97.8 (Oral), Pain: 0, O2 sat: 94 on (3L Oxygen), Time: 09/26/2019 10:34. VITAL SIGNS WedSep 26, 2019 13:02 SARAH Richey Cory BP: 143/84, Pulse: 95, Resp: 18, Pain: 0, O2 sat: 93, Time: 09/26/2019 13:02. Hospitalist ROS - Review of Systems ROS unobtainable: due to mental status Cardiovascular: denies: chest pain, palpitations, orthopnea, paroxysmal noc. dyspnea, edema, light headedness, other Gastrointestinal: reports: abdominal pain. denies: nausea, vomiting, diarrhea, constipation, melena, hematochezia, other - Medication Medications: Home meds: Polyethylene Glycol 3350 [Miralax] 17 gm PO DAILY 03/03/14 Tamsulosin HCl [Flomax] 0.4 mg PO DAILY 03/03/14 Hospitalist History - Past Medical History Source: patient, family Other Medical History: PAST MEDICAL HISTORY: History of renal cell carcinoma s/p nephrectomy; history of small-bowel obstruction, required surgery and colectomy; benign enlargement of prostate; incisional hernia; diabetes, type 2; dyslipidemia. Pulmonary masses concerning for neoplastic disease - family declining further w/u. PAST SURGICAL HISTORY: Right kidney removal due to cancer and colon resection after small-bowel obstruction. SOCIAL HISTORY: Patient is . He is pretty much active. He lives with his in the [facility]. He drinks 1 beer daily. He denies any smoking. He denies any other illicit drug abuse. FAMILY HISTORY: No strong family history of premature coronary artery disease, stroke, or cancer. ALLERGIES: ASPIRIN AND PROMETHAZINE. CODE STATUS - Full code. DPOA - spouse. - Exam General Appearance: awake alert, ill appearing Eye: PERRL, anicteric sclera ENT: normocephalic atraumatic, no oropharyngeal lesions, dry oral mucosa Neck: supple, symmetric, no JVD, no thyromegaly Heart: RRR, no gallops, no rubs, normal peripheral pulses Respiratory: no wheezes, no rales, normal chest expansion, normal percussion Gastrointestinal: soft, non-distended, normal bowel sounds, no guarding, no rigidity, tender to palpation (generlarized.) Gastrointestinal - other findings: Scar from previous surgery Extremities: no cyanosis, no clubbing, no edema Extremities - other findings: no calf tenderness Skin: normal turgor, no lesions Neurological: no focal deficits Musculoskeletal: normal tone, generalized weakness Psychiatric: normal affect, oriented to person Hospitalist Results - Labs Lab results: Laboratory Tests 09/26/19 09/26/19 06:35 06:35 WBC 10.7 Hgb 17.4 Hct 59.5 H Plt Count 368 Sodium 137 Potassium 4.6 Chloride 101 BUN 20 Creatinine 1.04 Laboratory Tests 12/15/16 09/26/19 06:31 06:35 Lactic Acid 1.0 Urine WBC 0-3 - EKG Interpretation EKG: SB - reiviewed by me - Radiology Interpretation CT scan - abdomen Status: image reviewed by me Additional Comment: CT abd - Distal SBO CT scan - chest Status: image reviewed by me Additional Comment: EXAM: CT of the chest without contrast HISTORY: Abdominal pain and generalized weakness COMPARISON: CT abdomen/pelvis 04/07/2019 TECHNIQUE: Multiple contiguous axial images were obtained in a CT the chest without contrast. Coronal and sagittal reformats were performed. FINDINGS: HEART: Normal in size without focal cardiac abnormality MEDIASTINUM: No hilar or mediastinal lymphadenopathy. Evaluation of the mediastinum is limited withou t IV contrast. LUNGS: 2 enlarging masses are seen in the left lower lobe measuring up to 5.2 cm in size. A mass is s een in the right upper lobe measuring 3.8 cm in size. There is a 1.4 cm mass in the right apex and a 1.4 cm mass in the anterior aspect of the left upper lobe. A 2.2 cm mass is seen in the left apex. PLEURAL SPACE: No pneumothorax or pleural effusion. CHEST WALL SOFT TISSUES: Unremarkable OSSEOUS STRUCTURES: Degenerative changes in the spine. VISUALIZED SUBDIAPHRAGMATIC STRUCTURES: An NG tube is seen in the stomach. Dilated loops of small bow el are seen in the left upper quadrant of the abdomen. There is a cyst in the left kidney. IMPRESSION: Bilateral pulmonary masses most likely represent metastatic disease. Chest x-ray Status: image reviewed by me Additional Comment: PORTABLE CHEST: DATE: 09/26/2019. FINDINGS: Comparison is made with a prior chest film of 03/14/2014. Additionally, I reviewed a 04/07/2019 CT of t he abdomen that showed masses in the left lower lobe that had increased in size over time. Todays exam shows the new appearance of nodules in the upper lobes. There is a new 4 cm nodule in t he right upper lobe and a new 2 cm nodule in the left upper lobe apex. There are some vague hazy are as in the left base which might be nodules, but these are less well defined on this portable film. T here are no large effusions. The heart size is normal. Calcification in the aortic arch is present as usual. Haziness in the left lower lobe is probably a combination of nodules and possibly infiltra te. IMPRESSION: 1. New appearance of upper lobe nodules since the 2014 study. 2. Hazy in the left base, probably a combination of nodules and possibly infiltrate. Hospitalist H&P A/P - Plan Plan: IMPRESSION: Abd pain due to SBO B/L Pulmonary lesions - prob due to Lung CA - family declining further w/u. BPH DM2 Dyslipidemia h/o renal cell carcinoma s/p nephrectomy PLAN: Admit to medical NPO IVF NGT low int suction Surg consult Monitor electrolytes Pain control O2 supp CALENDER INSPECTOR input once tolerating PO Sliding scale AM labs PT/OT Resume home meds once tolerating PO
[2019-09-26] MEDS ORDERED: Insulin Regular 300 UNITS/3 ML VIAL SC PRN ×2 (12:30)
[2019-09-26] MEDS ORDERED: Dextrose 50% Abboject 50 ML SYRINGE SLOW IVP PRN (12:30)
[2019-09-26] MEDS ORDERED: Dextrose 5% in Water 1,000 ML IV PRN (12:30)
[2019-09-26] MEDS ORDERED: Ondansetron ODT 4 MG TAB PO PRN (12:31)
[2019-09-26] MEDS ORDERED: Ondansetron PF 4 MG/2 ML Vial IVP PRN (12:31)
[2019-09-26] MEDS ORDERED: Acetaminophen 650 MG Suppository PR PRN (12:31)
[2019-09-26] MEDS ORDERED: Acetaminophen 325 MG TAB PO PRN (12:31)
[2019-09-26] MEDS ORDERED: Calcium Carbonate 500 MG ChewTAB PO PRN (12:31)
[2019-09-26] MEDS ORDERED: Morphine 2 MG/ML VIAL SLOW IVP PRN (12:38)
--- NOTE | 2019-09-26 13:11 | CT ---
EXAM: CT of the chest without contrast HISTORY: Abdominal pain and generalized weakness COMPARISON: CT abdomen/pelvis 04/07/2019 TECHNIQUE: Multiple contiguous axial images were obtained in a CT the chest without contrast. Coronal and sagittal reformats were performed. FINDINGS: HEART: Normal in size without focal cardiac abnormality MEDIASTINUM: No hilar or mediastinal lymphadenopathy. Evaluation of the mediastinum is limited withou t IV contrast. LUNGS: 2 enlarging masses are seen in the left lower lobe measuring up to 5.2 cm in size. A mass is s een in the right upper lobe measuring 3.8 cm in size. There is a 1.4 cm mass in the right apex and a 1.4 cm mass in the anterior aspect of the left upper lobe. A 2.2 cm mass is seen in the left apex. PLEURAL SPACE: No pneumothorax or pleural effusion. CHEST WALL SOFT TISSUES: Unremarkable OSSEOUS STRUCTURES: Degenerative changes in the spine. VISUALIZED SUBDIAPHRAGMATIC STRUCTURES: An NG tube is seen in the stomach. Dilated loops of small bow el are seen in the left upper quadrant of the abdomen. There is a cyst in the left kidney. IMPRESSION: Bilateral pulmonary masses most likely represent metastatic disease.
[2019-09-26] MEDS ORDERED: Pantoprazole 40 MG VIAL IVP SCH (14:00)
[2019-09-26] MEDS ORDERED: Cefepime 1 GM in Sodium Chloride 0.9% 100 ML IVPB SCH (14:00)
[2019-09-26 14:58] LABS: SARS-CoV-2 NAA Rapid Test Not Detected (NotDetected)
[2019-09-26] MEDS ORDERED: Ketorolac Tromethamine 30 MG/ML VIAL ONE (15:42)
[2019-09-26] MEDS ORDERED: MD-Gastroview 120 ML BOT ONE (15:59)
--- NOTE | 2019-09-26 19:45 | RAD ---
Exam: Gastrografin small bowel HISTORY: Evaluate for small bowel obstruction COMPARISON: None FINDINGS: Portable supine advance scout radiograph demonstrates contrast in the left renal pelvis, intrarenal collecting system and urinary bladder. Small amount of contrast in the distal left ureter Nasogastric tube terminates in the stomach Gastrografin was administered and opacifies the colon on the one hour and 1 1/2 hour images. No evide nce of high-grade obstruction. IMPRESSION: No evidence of high-grade obstruction
[2019-09-26] MEDS: Ketorolac Tromethamine 30 MG/ML VIAL IVP SCH (22:16)
[2019-09-26] MEDS: D5 1/2 NS w/10 mEq KCl 1,000 ML/1,000 ML BAG IV SCH ×2 (22:17→22:30)
[2019-09-26] MEDS: Pantoprazole 40 MG VIAL IVP SCH (22:31)
[2019-09-26] MEDS: Acetaminophen 650 MG/20.3 ML UDCUP PO PRN (23:41)
[2019-09-26] MEDS: Heparin 5,000 UNITS/ML VIAL SC SCH (23:41)
[2019-09-27 00:23] VITALS: BMI 21.7
[2019-09-27] MEDS: D5 1/2 NS w/10 mEq KCl 1,000 ML/1,000 ML BAG IV SCH ×2 (04:17→08:55)
[2019-09-27 05:23] LABS: #Eosinphils 0.1 thou/uL (0.0-0.7); #Lymphocytes 0.7 thou/uL (1.20-3.40); #Monocytes 0.4 thou/uL (0.11-0.59); #Neutrophils 2.9 thou/uL (1.40-6.50); %Basophils 0.3 % (0.0-1.0); %Eosinophils 2.2 % (0.0-10.0); %Lymphocytes 17.6 % (21.0-51.0); %Monocytes 8.9 % (0.0-10.0); Hemoglobin 16.9 g/dL (14.0-18.0); Mean Corpuscular HGB CONC 31.4 g/dL (32.0-36.0); Mean Corpuscular Hemoglobin 28.2 pg (27.0-31.0); Mean Platelet Volume 6.8 fL (7.4-10.4); Platelet Count 319 thou/uL (130-400); RBC Distribution Width 14.6 % (11.5-14.5); Red Blood Cell (RBC) Count 5.99 mill/uL (4.70-6.10); White Blood Cell (WBC) Count 4.1 thou/uL (4.8-10.8)
[2019-09-27 05:41] LABS: ALT (SGPT) 10 U/L (8-55); AST (SGOT) 14 U/L (5-34); Albumin 3.5 g/dL (3.4-4.8); Alkaline Phosphatase 91 U/L (40-110); Anion Gap 14 mmol/L (10-20); BUN (Urea Nitrogen) 18 mg/dL (8.4-25.7); Bilirubin, Total 0.4 mg/dL (0.2-1.2); Calc. Creatinine Clearance 49 mL/min (70-130); Calcium 8.9 mg/dL (7.8-10.44); Carbon Dioxide 21 mmol/L (23-31); Chloride 108 mmol/L (98-107); Estimated GFR-MDRD 80; Globulin 3.5 g/dL (2.4-3.5); Glucose 139 mg/dL (83-110); Phosphorus 3.3 mg/dL (2.3-4.7); Potassium 4.4 mmol/L (3.5-5.1); Sodium 139 mmol/L (136-145)
[2019-09-27] MEDS: Acetaminophen 650 MG/20.3 ML UDCUP PO PRN (05:53)
--- NOTE | 2019-09-27 06:29 | CON ---
DATE OF CONSULTATION: 09/26/2019 SURGERY ATTENDING: Darnell Childs DO PRIMARY CARE PHYSICIAN: Dr. Badillo at [facility]. REASON FOR CONSULT: Small-bowel obstruction. HISTORY OF PRESENT ILLNESS: This 89-year-old male with past medical history of small-bowel obstruction, multiple abdominal surgeries including renal cell carcinoma, status post right nephrectomy 6 years ago followed by a right hemicolectomy with primary anastomosis, subsequent ventral hernia, had infected incision site. Went back to the operating room after that. He has also had a hernia repair as a child. Presenting today with acute onset of abdominal pain, starting at 1:30 in the morning. The patient was given prune juice, had 2 bowel movements and passing some flatus, thought that this was going to resolve the issue; however, the abdominal pain remained and then bilious vomiting was noted. The patient presented to [facility], diagnosed with small-bowel obstruction, transferred here. Here in the emergency department, the patient has been given pain control, has an NG tube to low intermittent suction. His vital signs remained stable. COVID is negative. He has received a total of 2 L of IV fluids. Admitted to Medicine Service. We were consulted for small-bowel obstruction. The patient was seen and evaluated in the emergency department, reviewed with the ER staff, Internal Medicine staff. The patient's is at the bedside. The patient does have some dementia. REVIEW OF SYSTEMS: CONSTITUTIONAL: The patient has no chills or fever. Does report generalized weakness and fatigue. He was actually started on steroids yesterday by PCP. Has no congestion. RESPIRATORY: No cough, no shortness of air. CHEST: No chest pain, no edema. ABDOMEN: Positive pain. Positive vomiting. Positive bowel movements. No dysuria. NEUROLOGIC: The patient is generally weak. Does have some back pain. MUSCULOSKELETAL: Negative. Remainder of the review of systems is negative. PAST MEDICAL HISTORY: Significant for, 1. Renal cell carcinoma. 2. Small-bowel obstruction. 3. BPH. 4. Type 2 diabetes. 5. Hyperlipidemia. 6. Pulmonary masses. PAST SURGICAL HISTORY: 1. Right nephrectomy. 2. Colon resection. 3. Incision repair. 4. Hernia repair as a child. 5. Back surgery in the 1960s. MEDICATIONS: 1. MiraLAX. 2. Flomax 0.4 mg daily. FAMILY HISTORY: Noncontributory. ALLERGIES: TO ASPIRIN, PROMETHAZINE. SOCIAL HISTORY: The patient is currently , lives in [place]. 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 He quit smoking at age 41. He socially drinks alcohol, but never daily and no withdrawal of alcohol. PHYSICAL EXAMINATION: VITAL SIGNS: Blood pressure 138/75, heart rate is 76, breathing 21 times per minute, and saturating 92% on room air. GENERAL: An 89-year-old, pleasantly confused male, sitting up in bed, slight distress secondary to his NG tube. HEENT: He has dry mucous membranes. NG tube 55 cm with dark discharge to the right naris. RESPIRATORY: Equal rise and fall. Bilateral breath sounds. Clear to auscultation in upper and lower bilaterally. CARDIOVASCULAR: Regular rate and rhythm. No murmurs. Strong pulses. ABDOMEN: Has a midline incision and surgical scar. Hernia noted. Does have some skin changes about this. It is soft abdomen. No boris peritoneal signs are appreciated. No guarding. PELVIS: Stable. MUSCULOSKELETAL: Moves extremities. SKIN: Warm and dry. PSYCHIATRIC: Normal. NEUROLOGIC: Pleasantly confused, which is patient's baseline. DIAGNOSTIC STUDIES: Diagnostic criteria from today, a white blood cell count of 10.7, platelets of 368, hemoglobin and hematocrit 17.4 and 59.5 respectively. Does have a slight neutrophil predominance 80.6%. Sodium is 137, potassium 4.6, chloride is 101, CO2 is 22, BUN of 20, creatinine 1.04, glucose is 165, lactate is 1.0, calcium is 10.2, AST and ALT 17 and 15 respectively, total bilirubin 0.4, alkaline phosphatase is 101, lipase is 11, albumin 4.2, troponin is 0.02. A chest CT demonstrates bilateral pulmonary nodules, enlarged from the previous study. No other consolidation. Abdomen and pelvis CT, likely small bowel obstruction. Awaiting formal read. EKG was not able to be reviewed in our system as of yet. ASSESSMENT: 1. Small-bowel obstruction. 2. Pulmonary nodules, could be metastatic disease. 3. History of renal cell carcinoma with singular kidney. 4. History of hyperlipidemia. 5. Benign prostatic hypertrophy. 6. Questionable history of diabetes by chart review. RECOMMENDATIONS: 1. Volume repletion. 2. Pain control. 3. NG tube to low intermittent suction. 4. Bowel rest. 5. Small-bowel follow-through has been ordered. 6. Discussed complications of the patient, he has had a small bowel obstruction in the past in April that spontaneously resolved, plus the patient and the patient's are not confident about surgical intervention if it does come to this need. Understands this is a great risk given the patient's past surgical history and multiple abdominal surgeries with infection in the past. They verbalized understanding of same. 7. Also discussed code status. It does say full code by the hospitalist note. However, they state to me that they would like to have no resuscitative or "life support" and would allow a natural . However, they do want to be aggressively treated medically until that event does occur. I appreciate this opportunity to consult on Mr. Beard. Please contact our team with any questions. Job ID: [id number]
[2019-09-27] MEDS: Pantoprazole 40 MG VIAL IVP SCH (08:56)
[2019-09-27] MEDS: Heparin 5,000 UNITS/ML VIAL SC SCH ×2 (08:56→21:12)
[2019-09-27] MEDS ORDERED: D5 1/2 NS w/10 mEq KCl 1,000 ML/1,000 ML BAG IV SCH (12:57)
--- NOTE | 2019-09-27 14:53 | PRG ---
DATE OF SERVICE: 09/27/2019 SUBJECTIVE: Mr. Beard is an 89-year-old man with history of multiple previous abdominal operations. The patient was admitted yesterday with abdominal pain, suspicious for acute small-bowel obstruction. He is seen by the surgical service in consultation. A small-bowel follow-through was obtained, which reveals no small-bowel obstruction. By this morning, the patient has had multiple bowel movements. He has no nausea or vomiting. A nasogastric tube returns scant amount of nonbilious effluent. He has remained hemodynamically stable. OBJECTIVE: VITAL SIGNS: This morning, blood pressure 132/73, pulse 60, respiratory rate 16, temperature 97.7 degrees Fahrenheit, oxygen saturations 92% on 3.5 L by nasal cannula oxygen. ABDOMEN: Soft, nontender, and nondistended. LABORATORY FINDINGS: Include CBC with 4100 white blood cells, hemoglobin and hematocrit of 16.9 and 53.9 respectively, platelet count is 319,000. Metabolic profile; sodium 139, potassium 4.4, chloride is 108, bicarb is 21, BUN is 18, creatinine 0.89, glucose 139. IMPRESSION: Resolved acute small-bowel obstruction. PLAN: Nasogastric tube was discontinued. The patient will be started on a clear liquid diet, advance as tolerated. If tolerating diet, may be discharged home at the discretion of Primary Service. No further surgical indication is warranted. Job ID: [id number]
--- NOTE | 2019-09-27 17:12 | PDOC.HOSPP ---
- Subjective Encounter Date: 09/27/19 Encounter Time: 14:15 Subjective: Patient seen and examined for small bowel obstruction. NG tube was discontinued this morning. Patient denies any nausea vomiting. Tolerating clear liquid diet. - Objective Vital Signs & Weight: Vital Signs (12 hours) Temp Pulse Resp BP Pulse Ox 09/27/19 15:42 97.7 F 68 16 144/73 H 92 L Weight Admit Weight 135 lb Weight 135 lb I&O: 09/26/19 09/27/19 09/28/19 06:59 06:59 06:59 Intake Total 1200 Balance 1200 Result Diagrams: 09/27/19 04:46 09/27/19 04:46 Additional Labs: Accuchecks 09/27/19 09/27/19 09/27/19 15:52 12:06 05:15 POC Glucose 132 H 131 H 170 H Radiology Reviewed by me: Yes (Small bowel x-rayno bowel obstruction) Hospitalist ROS - Review of Systems Respiratory: denies: cough, dry, shortness of breath, hemoptysis, SOB with excertion, pleuritic pain, sputum, wheezing, other Cardiovascular: denies: chest pain, palpitations, orthopnea, paroxysmal noc. dyspnea, edema, light headedness, other - Medication Medications: Active Medications Generic Name Dose Route Start Last Admin Trade Name Dennyq PRN Reason Stop Dose Admin Acetaminophen 650 mg 09/26/19 15:17 09/27/19 05:53 Tylenol Elixir PO 650 mg Q4H PRN Administration pain/fever Heparin Sodium (Porcine) 5,000 units 09/26/19 21:00 09/27/19 08:56 Heparin SC 5,000 units BID LEONARD Administration Insulin Human Regular 0 units 09/26/19 12:30 09/27/19 05:53 Humulin R SC 2 units .MILD SLIDING SCALE PRN Administration Mild Correctional Scale Ketorolac Tromethamine 15 mg 09/26/19 15:30 09/26/19 22:16 Toradol IVP 10/01/19 15:31 Not Given [facility] Pantoprazole Sodium 40 mg 09/26/19 21:00 09/27/19 08:56 Protonix IVP 40 mg Q12HR LEONARD Administration - Exam General Appearance: NAD Neck: supple, no JVD Heart: no gallops, no rubs Respiratory: no wheezes, no ronchi Gastrointestinal: non-tender, normal bowel sounds, no guarding, no rigidity Extremities: no cyanosis, no clubbing Neurological: no new deficit Hosp A/P - Plan DVT proph w/SCDs Abd pain due to SBO B/L Pulmonary lesions - prob due to Lung CA - family declining further w/u. BPH DM2 Dyslipidemia h/o renal cell carcinoma s/p nephrectomy PLAN: Reduce IV fluid to 75 mL/h Continue clear liquid dietadvance as tolerated Change Protonix to p.o. Increase ambulation Restart Flomax Continue sliding-scale Discharge later today or in a.m. if stable Follow-up with pulmonary as outpatient for lung masses.
[2019-09-27] MEDS: Ketorolac Tromethamine 30 MG/ML VIAL IVP SCH (17:15)
[2019-09-27] MEDS ORDERED: Tamsulosin HCl 0.4 MG CAP PO SCH (21:00)
[2019-09-28] MEDS: Heparin 5,000 UNITS/ML VIAL SC SCH (09:12)
[2019-09-28 12:13] VITALS: BP 141/77; TEMP 98
--- NOTE | 2019-09-28 13:32 | DIS ---
DATE OF ADMISSION: 09/26/2019 DATE OF DISCHARGE: 09/28/2019 DISCHARGE DISPOSITION: Home. The patient declined home health care. FOLLOWUP: 1. Follow up with primary care physician, Dr. Badillo, in 1 week. 2. Follow up with General Surgery in 2 weeks. The patient was seen and examined on the day of discharge. Denies any new complaints. No nausea, vomiting, or diarrhea reported. BRIEF HOSPITAL COURSE: The patient is an 89-year-old male with small bowel obstruction earlier this year, presented to the emergency room with abdominal discomfort. Please refer to the history and physical for further details. The patient was admitted to the hospital with a diagnosis of small bowel obstruction. His CT scan of the abdomen was consistent with distal small bowel obstruction. He was managed conservatively with NG tube, IV fluids, and n.p.o. status. The patient was evaluated by General Surgery, Dr. Childs. He underwent small-bowel follow-through, after which he started having several bowel movements. He has been tolerating p.o. intake. Abdominal pain has completely resolved. Home health care was offered; however, the patient declined. He also refused senior living or inpatient rehab. Fall precaution was emphasized. The family agrees with the above plan of care. FINAL DIAGNOSES: 1. Abdominal pain secondary to distal small-bowel obstruction, resolved. 2. Bilateral pulmonary masses, most likely representing metastatic disease. Primary care physician advised to follow. Family declined further workup. 3. Benign prostatic hypertrophy. 4. Diabetes mellitus, type 2. 5. Dyslipidemia. 6. History of renal cell carcinoma, status post nephrectomy. 7. Chronic kidney disease, stage 2. 8. Physical deconditioning. The patient and the family understand the above plan of care. Job ID: [id number]
== END 2019-09-28 14:01 | disposition home or self-care (01) | DRG 389 ==
LOC: ERS 10:15 → SURG A 18:00
PROVIDERS: ADMIT Internal Medicine; ATTEND Internal Medicine
DX: K56.609 Unspecified intestinal obstruction, unspecified as to partial versus complete obstruction (principal); C78.02 Secondary malignant neoplasm of left lung; C78.01 Secondary malignant neoplasm of right lung; Z20.828 Contact with and (suspected) exposure to other viral communicable diseases; N40.0 Benign prostatic hyperplasia without lower urinary tract symptoms; E78.5 Hyperlipidemia, unspecified; E11.22 Type 2 diabetes mellitus with diabetic chronic kidney disease; F03.90 Unspecified dementia, unspecified severity, without behavioral disturbance, psychotic disturbance, mood disturbance, and anxiety; N18.2 Chronic kidney disease, stage 2 (mild); Z90.5 Acquired absence of kidney; Z85.528 Personal history of other malignant neoplasm of kidney; Z79.899 Other long term (current) drug therapy; Z90.49 Acquired absence of other specified parts of digestive tract; Z88.8 Allergy status to other drugs, medicaments and biological substances
CPT/HCPCS: 36415; 36416; 71250; 74250; 80053; 83735; 84100; 85025; 93005; 96361; 96374; C9113; J1644; J1815; J1885; J3490; Q9963; U0002